=== PATIENT | male | born 1940 | race African-American/Black ===

== ENCOUNTER 2024-12-10 19:18 | Emergency (ER) | payer SELFPAY ==
[2024-12-10 20:11] VITALS: BP 142/81; PULSE 86; RESP 16; TEMP 36.6; O2SAT 100
[2024-12-10 21:36] VITALS: BP 149/86; PULSE 75; RESP 18; O2SAT 97
== END 2024-12-10 23:35 | disposition left against medical advice (07) ==
PROVIDERS: Emergency Provider Registered Nurse
DX: R51.9 Headache, unspecified (principal)
CPT/HCPCS: 99199